=== PATIENT | male | born 1995 | race Caucasian/White ===

== ENCOUNTER 2017-06-24 16:50 | Emergency (ER) | payer OTHER ==
[2017-06-24] MEDS: FLUORESCEIN OPHTH 1 MG STRIP OS (19:00)
[2017-06-24] MEDS: TETRACAINE 0.5% OPHTH SOLN 4ML OS (19:00)
== END 2017-06-24 19:36 | disposition home or self-care (01) ==
LOC: M ED 16:50
DX: T15.02XA Foreign body in cornea, left eye, initial encounter (principal); W45.8XXA Other foreign body or object entering through skin, initial encounter; Y92.59 Other trade areas as the place of occurrence of the external cause; Y99.0 Civilian activity done for income or pay
CPT/HCPCS: 99283

== ENCOUNTER → 2019-12-02 | Outpatient (CLI) | payer OTHER ==
[~2019-12-02] MED LIST: IBUP-1022 PO
== END ==
LOC: M LABSMTC 11:24
PROVIDERS: ATTEND Family Medicine
DX: Z20.828 Contact with and (suspected) exposure to other viral communicable diseases (principal)
CPT/HCPCS: C9803; U0003